=== PATIENT | female | born 1960 | race Caucasian/White ===

== ENCOUNTER → 2018-08-27 | Outpatient (CLI) | payer BC ==
--- NOTE | 2018-08-27 19:46 | REP ---
CT LEFT WRIST: CT left wrist was performed in the axial plane. Sagittal and coronal reconstruction images are performed. There is an overlying cast. There is cortical irregularity and underlying irregular linear lucency in the distal radius dorsally. This is most consistent with a nondisplaced fracture at that location. There is no other evidence of acute fracture or dislocation. Other osseous structures are intact and well aligned. IMPRESSION: Findings most consistent with nondisplaced fracture of the dorsal aspect of the distal radius. Electronically Signed by Gunnar Dobbins MD 08/28/2018 04:27 P
== END ==
LOC: M RAD 16:00
PROVIDERS: ATTEND Orthopaedic Surgery Sports Medicine
DX: S52.515D Nondisplaced fracture of left radial styloid process, subsequent encounter for closed fracture with routine healing (principal); X58.XXXD Exposure to other specified factors, subsequent encounter